=== PATIENT | female | born 1985 | race Caucasian/White ===

== ENCOUNTER 2019-04-09 09:32 | Day surgery (SDC) | payer OTHER ==
[~2019-04-09 09:32] MED LIST: Buffered Lidocaine 1% SYRIN* 1 ML/SYRINGE INTRADERM ONE; Dexamethasone IV* 4 MG/ML 1 ML (4 MG) IV SLOW PU ONE; Dexamethasone IV* 4 MG/ML 1 ML (4 MG) ONE; Famotidine IV* 10 MG/ML 2 ML (20 mg) IV ONE; Famotidine IV* 10 MG/ML 2 ML (20 mg) ONE; Lactated Ringers 1000 ML Bag* 1,000 ML IV SCH
[2019-04-09] MEDS ORDERED: ceFAZolin 2 GM PREMIX in ORs 2 GM/50 ML BAG ONE (09:49)
[2019-04-09] MEDS ORDERED: fentaNYL* 50 MCG/ML 2 ML VIAL (100 MCG VIAL) ONE ×2 (10:35→10:54)
[2019-04-09] MEDS ORDERED: Atracurium* 10 MG/ML 10 ML VIAL ONE (10:35)
[2019-04-09] MEDS ORDERED: Propofol* 10 MG/ML 20 ML BTL ONE (10:36)
[2019-04-09] MEDS ORDERED: Midazolam* 1 MG/ML 5 ML VIAL (5 MG) ONE (10:36)
[2019-04-09] MEDS ORDERED: Ketorolac INJ* 30 MG/ML 1 ML VIAL ONE (10:36)
[2019-04-09] MEDS ORDERED: Ondansetron INJ* 2 MG/ML VIAL ONE (10:36)
[2019-04-09] MEDS ORDERED: Lidocaine 2% PF * 5 ML VIAL ONE (10:36)
[2019-04-09] MEDS ORDERED: Ondansetron INJ* 2 MG/ML VIAL IV PRN (11:22)
[2019-04-09] MEDS ORDERED: DiMENhydriNATE IV* 50 MG/ML VIAL IV PUSH PRN (11:22)
[2019-04-09] MEDS ORDERED: HYDROmorphone INJ1* 1 MG/ML SYRINGE IV PRN (11:22)
[2019-04-09] MEDS ORDERED: Naloxone* 0.4 MG/ML 1 ML VIAL IV PRN (11:22)
[2019-04-09] MEDS ORDERED: fentaNYL* 50 MCG/ML 2 ML VIAL (100 MCG VIAL) IV PRN (11:22)
[2019-04-09] MEDS ORDERED: oxyCODONE/Acetamin 5/325 MG* TAB PO PRN (11:22)
[2019-04-09] MEDS ORDERED: Bupivacaine 0.25% SDV* 30 ML ONE (11:39)
[2019-04-09] MEDS ORDERED: DiMENhydriNATE IV* 50 MG/ML VIAL ONE (12:59)
[2019-04-09] MEDS ORDERED: Scopolamine 1.5 mg* PATCH ONE (13:00)
[2019-04-09] MEDS ORDERED: Scopolamine 1.5 mg* PATCH TRANSDERM SCH (13:00)
[2019-04-09 14:46] VITALS: BP 105/59
--- NOTE | 2019-04-09 23:37 | OP ---
DATE OF OPERATION: 04/09/19 - [facility] DATE OF : 89 SURGEON: Rk Browne MD. CAROUSEL ATTENDANT: TRACEY Grey. An printer's assistant was needed for the entirety of the procedure to aid in positioning of the arm and retraction. ANESTHESIOLOGIST: Dr. Poole. ANESTHESIA: General. PRE-OP DIAGNOSIS: Left wrist peripheral triangular fibrocartilage complex tear. POST-OP DIAGNOSIS: Left wrist complex peripheral triangular fibrocartilage complex tear with tearing of the foveal attachment as well as peripheral tear. OPERATIVE PROCEDURE: 1. Left wrist arthroscopic TFCC debridement and partial dorsal synovectomy. 2. Left wrist open triangular fibrocartilage complex repair. ESTIMATED BLOOD LOSS: 2 mL. COMPLICATIONS: None. FINDINGS: See above and below. DESCRIPTION OF PROCEDURE: Ms. Carrera was seen in the preoperative holding area. The correct site, side, and procedures were identified. We came back to the operating room where the arm was prepped and draped in the usual fashion and positioned in the [employer] traction tower. A time-out was performed. The arm was exsanguinated with the Esmarch and the tourniquet inflated. I first created a 3-4 portal by incising the skin with an 11-blade. A mosquito was used to cannulate the joint. The cannula was introduced. The camera was introduced into the 3-4 portal. The radial-sided structures all looked fine including the volar capsular ligament and the scaphoid facet and radial styloid. The lunate facet looked fine. There was a lot of protruding dorsal synovitis. I created a 6R portal and the shaver was introduced through the portal. Dorsal synovectomy and debridement were performed. Immediately seen was a very complex peripheral TFCC tear. Trampling effect of the TFCC was completely absent. I debrided everything, got everything nice and clean. That was as much as I could do with the arthroscope. The arm was released out of the traction tower and all the arthroscopic equipment was handed off. I then made a longitudinal incision incorporating my 6R portal over the dorsal ulnar side of the wrist. Dissection was carried down. Full-thickness flaps were raised off the extensor retinaculum. The fifth dorsal compartment was opened. The EDM tendon was retracted radially and left transposed at the end of the surgery. The base of the fifth dorsal compartment was incised and a DRUJ arthrotomy was performed. This was teed back distally just proximal to the TFCC and the dorsal capsule was released off the TFCC. I went ahead and debrided all of the degenerative fibers. A complete foveal tear was immediately seen. Once I debrided that and mobilized the TFCC, I could also see there was a complex peripheral tear in the TFCC as well. I thought the best way to repair this was to place two DePuy mini Mitek suture anchors in the fovea. I went ahead and did that. I then whipstitched 1 limb of the suture palmar to the peripheral tear. The other tail of the suture was then brought dorsally and maximum tension was set as the suture was tied off. This pulled the TFCC very nicely down to the fovea and I got excellent bone to TFCC apposition. Additionally, this closed down the peripheral tear that was in the coronal plane very nicely. I went ahead and added a couple of [id number] sutures with a 3-0 Ethibond suture. I then repaired the dorsal capsule back to the TFCC. The DRUJ arthrotomy was closed in 1 layer with the fifth dorsal compartment leaving the EDM tendon transposed dorsally. Ultimately, we had a very nice repair of the DRUJ. It was now very stable. There was full pronation and supination, but with excellent DRUJ stability. The repair was nice and tight. The wound was irrigated out. The skin was closed with 4-0 Monocryl suture and Steri-Strips. 0.25% Marcaine was infiltrated. The wounds were dressed and a sugar-tong splint was applied. She was taken to the recovery room in stable condition. [id number]/[facility] #: [id number] DHAVAL
== END 2019-04-09 14:40 | disposition home or self-care (01) ==
LOC: OREAST 09:32
PROVIDERS: ATTEND Orthopaedic Surgery Hand Surgery
DX: M25.832 Other specified joint disorders, left wrist (principal); K21.9 Gastro-esophageal reflux disease without esophagitis; D64.9 Anemia, unspecified
CPT/HCPCS: 81025; A9270-GY; C1713; J0690; J1100; J1240; J1885; J2250; J2405; J2704; J3010; J3490

== ENCOUNTER 2020-08-01 16:08 | Observation (INO) ==
[2020-08-01] MEDS ORDERED: Dexamethasone IV 4 MG/ML VIAL 1 ml VIAL IV SLOW PU ONE (16:23)
[2020-08-01] MEDS ORDERED: Clindamycin 600 MG/D5W BAG 600 MG/50 ML BAG IV ONE (16:23)
[2020-08-01] MEDS ORDERED: NS 0.9% 1000 ml BAG 1,000 ML IV ONE (16:23)
[2020-08-01 17:15] LABS: ABS Basophils 0.1 10^3/ul (0-0.2); ABS Lymphocytes 3.9 10^3/ul (1.0-4.8); ABS Monocytes 0.5 10^3/ul (0-0.8); ABS Neutrophils 8.4 10^3/ul (1.5-7.7); Eosinophil % 0.3 %; Hematocrit 41 % (35-47); Hemoglobin 13.5 g/dL (12.0-16.0); Lymphocyte % 29.9 %; Mean Corpuscular HGB Conc 33 g/dL (31-36); Mean Corpuscular Hemoglobin 28 pg (27-31); Mean Corpuscular Volume 85 fL (80-97); Nucleated Red Blood Cells % 0.1; Platelet Count 262 10^3/uL (150-450); Red Blood Count 4.84 10^6 /uL (3.70-4.87); Red Cell Distribution Width 14 % (10-15); White Blood Count 12.9 10^3/uL (3.5-10.8)
[2020-08-01 17:45] LABS: ALT 123 U/L (7-52); AST 80 U/L (13-39); Albumin/Globulin Ratio 1.1 (1-3); Alkaline Phosphatase 67 U/L (35-149); Anion Gap 6 mmol/L (2-11); Blood Urea Nitrogen 21 mg/dL (6-24); C Reactive Protein 10.49 mg/L (<8.01); CO2 Carbon Dioxide 29 mmol/L (22-32); Calcium 8.9 mg/dL (8.6-10.3); Chloride 99 mmol/L (101-111); EGFR African American 109.4 (>60); EGFR Non-African American 90.4 (>60); Globulin 3.5 g/dL (2-4); Glucose 117 mg/dL (70-100); Potassium 4.5 mmol/L (3.5-5.0); Sodium 134 mmol/L (135-145); Total Protein 7.5 g/dL (6.4-8.9)
[2020-08-01] MEDS ORDERED: Ondansetron 4 mg VIAL 2 MG/ML 2 ml VIAL IV PRN (19:49)
[2020-08-01] MEDS ORDERED: Dexamethasone IV 4 MG in NS 0.9% 50 ML 50 ML IVPB SCH (20:00)
[2020-08-01 20:19] LABS: HCG Pregnancy < 0.60 mIU/mL
[2020-08-01] MEDS ORDERED: Morphine 2 MG/ML SYRINGE IV PRN (20:23)
[2020-08-01] MEDS: NS 0.9% 1000 ml BAG 1,000 ML IV SCH (22:40)
[2020-08-01] MEDS: Acetaminophen IV 1 GM/100ML 100 ML IVPB SCH (23:09)
[2020-08-02] MEDS: Clindamycin 600 MG/D5W BAG 600 MG/50 ML BAG IV SCH ×2 (02:17→08:42)
[2020-08-02] MEDS: Dexamethasone IV 4 MG/ML VIAL 1 ml VIAL IV SLOW PU SCH ×4 (02:17→20:37)
[2020-08-02 04:53] LABS: ABS Basophils 0.1 10^3/ul (0-0.2); ABS Lymphocytes 3.7 10^3/ul (1.0-4.8); ABS Monocytes 0.8 10^3/ul (0-0.8); ABS Neutrophils 8.7 10^3/ul (1.5-7.7); Eosinophil % 0.1 %; Hematocrit 41 % (35-47); Hemoglobin 13.5 g/dL (12.0-16.0); Lymphocyte % 27.8 %; Mean Corpuscular HGB Conc 33 g/dL (31-36); Mean Corpuscular Hemoglobin 28 pg (27-31); Mean Corpuscular Volume 85 fL (80-97); Mean Platelet Volume 7.9 fL (7.4-10.4); Nucleated Red Blood Cells % 0.1; Platelet Count 299 10^3/uL (150-450); Red Blood Count 4.84 10^6 /uL (3.70-4.87); Red Cell Distribution Width 14 % (10-15); White Blood Count 13.2 10^3/uL (3.5-10.8)
[2020-08-02 05:11] LABS: Calcium 8.9 mg/dL (8.6-10.3); Potassium 4.3 mmol/L (3.5-5.0)
[2020-08-02] MEDS: Acetaminophen IV 1 GM/100ML 100 ML IVPB SCH ×2 (06:51→13:10)
[2020-08-02] MEDS ORDERED: Clindamycin 900 MG/D5W BAG 900 MG/50 ML BAG IVPB SCH (10:00)
[2020-08-02] MEDS ORDERED: Clindamycin 300 MG/D5W BAG 300 MG/50 ML BAG IV ONE (10:30)
[2020-08-02] MEDS: NS 0.9% 1000 ml BAG 1,000 ML IV SCH ×2 (10:46→22:27)
[2020-08-02] MEDS: Clindamycin 900 MG IVPREMIX- Q8H IVPB SCH (19:28)
[2020-08-03] MEDS: Dexamethasone IV 4 MG/ML VIAL 1 ml VIAL IV SLOW PU SCH ×2 (02:07→07:46)
[2020-08-03] MEDS: Clindamycin 900 MG IVPREMIX- Q8H IVPB SCH (03:31)
[2020-08-03 04:47] LABS: ABS Lymphocytes 2.9 10^3/ul (1.0-4.8); ABS Monocytes 0.8 10^3/ul (0-0.8); ABS Neutrophils 8.1 10^3/ul (1.5-7.7); Eosinophil % 0.1 %; Hematocrit 38 % (35-47); Hemoglobin 12.3 g/dL (12.0-16.0); Lymphocyte % 24.5 %; Mean Corpuscular HGB Conc 33 g/dL (31-36); Mean Corpuscular Hemoglobin 28 pg (27-31); Mean Corpuscular Volume 85 fL (80-97); Nucleated Red Blood Cells % 0.1; Platelet Count 262 10^3/uL (150-450); Red Blood Count 4.43 10^6 /uL (3.70-4.87); Red Cell Distribution Width 14 % (10-15); White Blood Count 11.8 10^3/uL (3.5-10.8)
[2020-08-03 05:04] LABS: Calcium 8.4 mg/dL (8.6-10.3); EGFR African American 157.3 (>60); Potassium 4.2 mmol/L (3.5-5.0)
[2020-08-03 08:09] VITALS: BP 115/73
== END 2020-08-03 11:11 | disposition home or self-care (01) ==
LOC: SSU 16:08 → ED 16:08
PROVIDERS: ADMIT Internal Medicine; ATTEND Internal Medicine